=== PATIENT | male | born 1975 | race Caucasian/White ===

== ENCOUNTER 2022-04-07 17:19 | Emergency (ER) | payer OTHER, SELFPAY ==
[2022-04-07 17:26] VITALS: BP 145/99; PULSE 67; RESP 16; TEMP 37.1; O2SAT 99
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
[2022-04-07 17:37] VITALS: BP 145/99; PULSE 67; RESP 16; TEMP 37.1; O2SAT 99
== END 2022-04-07 17:47 | disposition home or self-care (01) ==
PROVIDERS: Emergency Provider Nurse Practitioner Family; PCP Internal Medicine
DX: M25.512 Pain in left shoulder (principal); S63.502A Unspecified sprain of left wrist, initial encounter; V43.52XA Car driver injured in collision with other type car in traffic accident, initial encounter; Y99.0 Civilian activity done for income or pay; I10 Essential (primary) hypertension; K21.9 Gastro-esophageal reflux disease without esophagitis
CPT/HCPCS: 99203; G0463